=== PATIENT | male | born 1990 | race Caucasian/White ===

== ENCOUNTER 2022-05-06 20:00 | Emergency (ER) | payer SELFPAY | END 2022-05-06 20:20 | disposition home or self-care (01) | LOC: MW.ED 20:00 | DX: H60.91 Unspecified otitis externa, right ear (principal); H66.91 Otitis media, unspecified, right ear | CPT/HCPCS: 99283 ==

== ENCOUNTER 2022-06-06 03:32 | Emergency (ER) | payer SELFPAY | END 2022-06-06 04:14 | LOC: MW.ED 03:32 | DX: Z13.89 Encounter for screening for other disorder (principal); F11.90 Opioid use, unspecified, uncomplicated; F17.210 Nicotine dependence, cigarettes, uncomplicated | CPT/HCPCS: 99283 ==

== ENCOUNTER 2022-11-17 19:26 | Emergency (ER) | payer SELFPAY ==
[2022-11-17] MEDS ORDERED: traMADol 50 MG Tab PO ONE (20:14)
== END 2022-11-17 22:18 | disposition home or self-care (01) ==
LOC: MW.ED 19:26
DX: S63.502A Unspecified sprain of left wrist, initial encounter (principal); J32.9 Chronic sinusitis, unspecified; W01.0XXA Fall on same level from slipping, tripping and stumbling without subsequent striking against object, initial encounter
CPT/HCPCS: 70450; 72072; 72100; 73110; 73130; 99284; A9270